=== PATIENT | female | born 1975 | race Caucasian/White ===

== ENCOUNTER 2017-01-05 14:37 | Emergency (ER) | payer MEDICAID ==
--- NOTE | 2017-01-05 14:52 | EDM.PDOC ---
ED HPI GENERAL MEDICAL PROBLEM - General Chief Complaint: Lower Extremity Injury/Pain Stated Complaint: HURT LT FOOT Time Seen by Provider: 01/05/17 14:41 Source of Information: Reports: Patient History Limitations: Reports: No Limitations - History of Present Illness INITIAL COMMENTS - FREE TEXT/NARRATIVE: History of present illness: []Last night patient fell asleep with her foot underneath her thigh and when she got up she realized her foot was asleep and stepped on the floor and fell. She heard a loud pop but didn't feel too much pain as her foot was still numb. She popped her foot up on a pillow and went to sleep when she awoke this morning she had severe pain and bruising and swelling in her foot. Review of systems: As per history of present illness and below otherwise all systems reviewed and negative. Past medical history: As per history of present illness and as reviewed below otherwise noncontributory. Surgical history: As per history of present illness and as reviewed below otherwise noncontributory. Social history: No reported history of drug or alcohol abuse. Family history: As per history of present illness and as reviewed below otherwise noncontributory. Physical exam: General: Well developed, well nourished in NAD HEENT: Atraumatic, normocephalic, pupils reactive, negative for conjunctival pallor or scleral icterus, mucous membranes moist, throat clear, neck supple, nontender, trachea midline. Lungs: Clear to auscultation, breath sounds equal bilaterally, chest nontender. Heart: S1S2, regular, negative for clicks, rubs, or JVD. Abdomen: Soft, nondistended, nontender. Negative for masses or hepatosplenomegaly. Negative for costovertebral tenderness. Pelvis: Stable nontender. Genitourinary: Deferred. Rectal: Deferred. Extremities: Atraumatic, negative for cords or calf pain. Neurovascular unremarkable. Neuro: Awake, alert, oriented. Cranial nerves II through XII unremarkable. Cerebellum unremarkable. Motor and sensory unremarkable throughout. Exam nonfocal. Diagnostics: []X-ray showing fracture nondisplaced the base of the fifth metatarsal Therapeutics: []Patient was placed in a boot and given crutches she refused pain meds other than ibuprofen Impression: []Left fifth metatarsal fracture Plan: []Follow-up orthopedics ice, elevate, wear your boot and use crutches do not appear weight on this foot. Definitive disposition and diagnosis as appropriate pending reevaluation and review of above. Left Feet Pain Score (Numeric/FACES): 10 - Related Data Allergies Allergy/AdvReac Type Severity Reaction Status Date / Time No Known Allergies Allergy Verified 01/05/17 15:01 Home Meds: Home Meds Gabapentin [Neurontin] 200 mg PO TID 01/05/17 [History] Review of Systems - Review of Systems Review Of Systems: See Below (See history of present illness) ED EXAM, GENERAL - Physical Exam Exam: See Below (See history of present illness) Course - Vital Signs Last Recorded V/S: Last Vital Signs Temp 36.5 C 01/05/17 14:50 Pulse 85 01/05/17 14:50 Resp 16 01/05/17 14:50 BP 128/65 01/05/17 14:50 Pulse Ox 98 01/05/17 14:50 - Orders/Labs/Meds Orders: Active Orders 24 hr Category Date Time Status Foot 2V Lt [CR] Stat Exams 01/05/17 14:58 Taken DME for Discharge [COMM] Stat Oth 01/05/17 15:36 Ordered Meds: Medications Discontinued Medications Generic Name Dose Route Start Last Admin Trade Name Freq PRN Reason Stop Dose Admin Ibuprofen 600 mg 01/05/17 15:00 01/05/17 15:06 Motrin PO 01/05/17 15:01 Not Given ONETIME ONE Ibuprofen 800 mg 01/05/17 15:05 01/05/17 15:09 Motrin PO 01/05/17 15:06 800 mg ONETIME ONE Administration Departure - Departure Time of Disposition: 15:38 Disposition: Home, Self-Care 01 Condition: Good Clinical Impression: Fracture of fifth metatarsal bone of left foot Qualifiers: Encounter type: initial encounter Fracture type: closed Fracture alignment: nondisplaced Qualified Code(s): S92.355A - Nondisplaced fracture of fifth metatarsal bone, left foot, initial encounter for closed fracture - Discharge Information Referrals: PCP,None [Primary Care Provider] - Forms: ED Department Discharge Additional Instructions: The following information is given to patients seen in the emergency department who are being discharged to home. This information is to outline your options for follow-up care. We provide all patients seen in our emergency department with a follow-up referral. The need for follow-up, as well as the timing and circumstances, are variable depending upon the specifics of your emergency department visit. If you don't have a primary care physician on staff, we will provide you with a referral. We always advise you to contact your personal physician following an emergency department visit to inform them of the circumstance of the visit and for follow-up with them and/or the need for any referrals to a consulting specialist. The emergency department will also refer you to a specialist when appropriate. This referral assures that you have the opportunity for follow-up care with a specialist. All of these measure are taken in an effort to provide you with optimal care, which includes your follow-up. Under all circumstances we always encourage you to contact your private physician who remains a resource for coordinating your care. When calling for follow-up care, please make the office aware that this follow-up is from your recent emergency room visit. If for any reason you are refused follow-up, please contact the [facility] Emergency Department at and asked to speak to the emergency department charge nurse. Ice, elevate, do not bear weight on this foot, use her crutches and wear splint given. Return to ER if symptoms worsen follow up with orthopedic next available appointment. [facility] [address], [address] [place] [address] - My Orders Last 24 Hours: My Active Orders 01/05/17 14:58 Foot 2V Lt [CR] Stat 01/05/17 15:36 DME for Discharge [COMM] Stat - Assessment/Plan Last 24 Hours: My Active Orders 01/05/17 14:58 Foot 2V Lt [CR] Stat 01/05/17 15:36 DME for Discharge [COMM] Stat
[2017-01-05] MEDS ORDERED: Ibuprofen 400 MG Tab PO ONE (15:00)
[2017-01-05] MEDS ORDERED: Ibuprofen 800 MG Tab PO ONE (15:05)
--- NOTE | 2017-01-05 15:44 | CR ---
EXAMINATION: Left foot HISTORY: Pain COMPARISON: None TECHNIQUE: 2 views FINDINGS: There is a nondisplaced fracture through the proximal aspect of the fifth metatarsal. The r emaining osseous structures and joint spaces appear intact. Bone mineralization is otherwise normal. IMPRESSION: Nondisplaced proximal fifth metatarsal fracture.
== END 2017-01-05 16:02 | disposition home or self-care (01) ==
LOC: MW.ED 14:37
DX: S92.355A Nondisplaced fracture of fifth metatarsal bone, left foot, initial encounter for closed fracture (principal); W19.XXXA Unspecified fall, initial encounter
CPT/HCPCS: 73620; 99283; A9270

== ENCOUNTER 2017-02-15 17:18 | Emergency (ER) | payer MEDICAID ==
--- NOTE | 2017-02-15 17:49 | EDM.PDOCBH ---
ED HPI GENERAL MEDICAL PROBLEM - General Chief Complaint: Behavioral/Psych Stated Complaint: UNK Time Seen by Provider: 02/15/17 17:35 Source of Information: Reports: Patient History Limitations: Reports: No Limitations - History of Present Illness INITIAL COMMENTS - FREE TEXT/NARRATIVE: Presents stating she ran out of Suboxone and was wondering if we could give her some until an appointment she has on Tuesday. She has been taking it for 3 years supplied by a rehabilitation clinic in [place]. She recently moved here to [place]. - Related Data Allergies Allergy/AdvReac Type Severity Reaction Status Date / Time No Known Allergies Allergy Verified 02/15/17 17:47 Home Meds: Home Meds Gabapentin [Neurontin] 200 mg PO TID 01/05/17 [History] Lidocaine [Lidoderm] 1 each TP BID PRN #10 adh..patch 01/05/17 [Rx] Past Medical History HEENT History: Reports: Other (See Below) Other HEENT History: hearing problem Cardiovascular History: Reports: None Respiratory History: Reports: None Gastrointestinal History: Reports: None Genitourinary History: Reports: None RN GASTROENTEROLOGY History: Reports: None Neurological History: Reports: Other (See Below) Other Neuro History: nerve damage Psychiatric History: Reports: None - Past Surgical History HEENT Surgical History: Reports: Other (See Below) Other HEENT Surgeries/Procedures: ear surgery? Cardiovascular Surgical History: Reports: None GI Surgical History: Reports: None Social & Family History - Tobacco Use Smoking Status *Q: Current Every Day Smoker Years of Tobacco use: 20 Packs/Tins Daily: 1 ED ROS GENERAL - Review of Systems Review Of Systems: ROS reveals no pertinent complaints other than HPI. ED EXAM, BEHAVIORAL HEALTH - Physical Exam Exam: See Below Exam Limited By: No Limitations General Appearance: Alert, No Apparent Distress Ears: Normal External Exam Nose: Normal Inspection Throat/Mouth: Normal Inspection Head: Atraumatic, Normocephalic Neck: Normal Inspection Respiratory/Chest: No Respiratory Distress Cardiovascular: Normal Peripheral Pulses GI/Abdominal: Soft Extremities: Normal Inspection Neurological: Alert, Normal Mood/Affect Psychiatric: Alert, Normal Affect, Normal Cognition, Normal Mood Skin Exam: Warm, Dry, Intact, Normal color, No rash Departure - Departure Time of Disposition: 17:49 Disposition: Home, Self-Care 01 Condition: Good Clinical Impression: Medication addiction in remission - Discharge Information Referrals: PCP,None [Primary Care Provider] - Forms: ED Department Discharge Additional Instructions: 1. Suboxone is only available at specialized clinics by specially licensed physicians. Suboxone is not available here. Check the internet for availability in [place].
== END 2017-02-15 18:27 | disposition home or self-care (01) ==
LOC: MW.ED 17:18
DX: F11.21 Opioid dependence, in remission (principal); F17.210 Nicotine dependence, cigarettes, uncomplicated
CPT/HCPCS: 99282

== ENCOUNTER 2017-02-23 12:21 | Emergency (ER) | payer MEDICAID ==
--- NOTE | 2017-02-23 12:42 | EDM.PDOC ---
ED HPI GENERAL MEDICAL PROBLEM - General Chief Complaint: Genitourinary Problem Stated Complaint: POSSIBLE UTI Time Seen by Provider: 02/23/17 12:26 Source of Information: Reports: Patient History Limitations: Reports: No Limitations - History of Present Illness INITIAL COMMENTS - FREE TEXT/NARRATIVE: HISTORY AND PHYSICAL: History of present illness: Patient is a 41-year-old female who presents to the emergency room with complaints of dysuria, low back pain, pelvic pressure 3 days. She reports that she gets frequent UTIs and the symptoms are similar. Denies any vaginal discharge, bleeding or concerns of STI's. Denies any back injury or trauma. Eyes any changes in her bowel habits. Review of systems: As per history of present illness and below otherwise all systems reviewed and negative. Past medical history: As per history of present illness and as reviewed below otherwise noncontributory. Surgical history: As per history of present illness and as reviewed below otherwise noncontributory. Social history: No reported history of drug or alcohol abuse. Family history: As per history of present illness and as reviewed below otherwise noncontributory. Physical exam: Gen.: Well-developed and well-nourished 41-year-old female. Appears nontoxic and in no acute distress. Alert and oriented. HEENT: Atraumatic, normocephalic, pupils reactive, negative for conjunctival pallor or scleral icterus, mucous membranes moist, throat clear, neck supple, nontender, trachea midline. Lungs: Clear to auscultation, breath sounds equal bilaterally, chest nontender. Heart: S1S2, regular, negative for clicks, rubs, or JVD. Abdomen: Soft, nondistended, supra pubic tenderness. Negative for masses or hepatosplenomegaly. Negative for costovertebral tenderness. Pelvis: Stable nontender. Genitourinary: Deferred. Rectal: Deferred. Extremities: Atraumatic, negative for cords or calf pain. Neurovascular unremarkable. Neuro: Awake, alert, oriented. Cranial nerves II through XII unremarkable. Cerebellum unremarkable. Motor and sensory unremarkable throughout. Exam nonfocal. The urinalysis did not show any bacteria/WBCs in the specimen. Did discuss with this with the patient. Instructed her to follow-up with her primary caregiver. The phone number/information will be given to her. She states she did not have one previous that she recently moved here. Urine culture has been added. Patient is aware of plan of care denies any further questions at this time. Diagnostics: UA Therapeutics: [] Impression: Dysuria, urethritis Plan: 1. Please take your antibiotic as prescribed. Pyridium has also been prescribed for you, this will help alleviate the pain/discomfort associated with urinating. 2. Increase her oral fluid intake. Avoid taking any bubble baths or using any hot tubs for the next couple days. 3. Follow-up with your primary caregiver in the next 1-2 days. Return to the ED as needed and as discussed. Definitive disposition and diagnosis as appropriate pending reevaluation and review of above. Duration: Day(s): (3) Location: Reports: Abdomen, Back Associated Symptoms: Reports: No Other Symptoms Lower Back Pain Score (Numeric/FACES): 4 - Related Data Allergies Allergy/AdvReac Type Severity Reaction Status Date / Time No Known Allergies Allergy Verified 02/23/17 12:32 Home Meds: Home Meds Phenazopyridine [Pyridium] 100 mg PO TID 2 Days #6 tablet 02/23/17 [Rx] Past Medical History HEENT History: Reports: Other (See Below) Other HEENT History: hearing problem Cardiovascular History: Reports: None Respiratory History: Reports: None Gastrointestinal History: Reports: None Genitourinary History: Reports: None [employer]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 Cardiovascular Surgical History: Reports: None GI Surgical History: Reports: None Social & Family History - Family History Family Medical History: Noncontributory - Tobacco Use Smoking Status *Q: Current Every Day Smoker Years of Tobacco use: 10 Packs/Tins Daily: 1 Used Tobacco, but Quit: No Second Hand Smoke Exposure: Yes - Recreational Drug Use Recreational Drug Use: Yes ED ROS GENERAL - Review of Systems Review Of Systems: ROS reveals no pertinent complaints other than HPI. ED EXAM, RENAL/ - Physical Exam Exam: See Below (See dictation) Course - Vital Signs Last Recorded V/S: Last Vital Signs Temp 98.1 F 02/23/17 12:32 Pulse 59 L 02/23/17 12:32 Resp 12 02/23/17 12:32 BP 111/72 02/23/17 12:32 Pulse Ox 98 02/23/17 12:32 - Orders/Labs/Meds Orders: Active Orders 24 hr Category Date Time Status CULTURE URINE [RM] Stat Lab 02/23/17 13:00 Received Labs: Laboratory Tests 02/23/17 Range/Units 13:00 Urine Color YELLOW Urine Appearance CLEAR Urine pH 6.0 (5.0-8.0) Ur Specific [place] 1.015 (1.001-1.035) Urine Protein NEGATIVE (NEGATIVE) mg/dL Urine Glucose (UA) NEGATIVE (NEGATIVE) mg/dL Urine Ketones NEGATIVE (NEGATIVE) mg/dL Urine Occult Blood MODERATE (NEGATIVE) Urine Nitrite NEGATIVE (NEGATIVE) Urine Bilirubin NEGATIVE (NEGATIVE) Urine Urobilinogen 0.2 (<2.0) EU/dL Ur Leukocyte Esterase NEGATIVE (NEGATIVE) Urine RBC 0-1 (0-2/HPF) Urine WBC 0-1 (0-5/HPF) Ur Epithelial Cells OCCASIONAL (NONE-FEW) Urine Bacteria RARE (NEGATIVE) Departure - Departure Time of Disposition: 13:36 Disposition: Home, Self-Care 01 Clinical Impression: Dysuria, Ureteritis - Discharge Information Prescriptions: Phenazopyridine [Pyridium] 100 mg PO TID 2 Days #6 tablet Referrals: PCP,None [Primary Care Provider] - Forms: ED Department Discharge Additional Instructions: My general discharge The following information is given to patients seen in the emergency department who are being discharged to home. This information is to outline your options for follow-up care. We provide all patients seen in our emergency department with a follow-up referral. The need for follow-up, as well as the timing and circumstances, are variable depending upon the specifics of your emergency department visit. If you don't have a primary care physician on staff, we will provide you with a referral. We always advise you to contact your personal physician following an emergency department visit to inform them of the circumstance of the visit and for follow-up with them and/or the need for any referrals to a consulting specialist. The emergency department will also refer you to a specialist when appropriate. This referral assures that you have the opportunity for follow-up care with a specialist. All of these measure are taken in an effort to provide you with optimal care, which includes your follow-up. Under all circumstances we always encourage you to contact your private physician who remains a resource for coordinating your care. When calling for follow-up care, please make the office aware that this follow-up is from your recent emergency room visit. If for any reason you are refused follow-up, please contact the [facility] Emergency Department at and asked to speak to the emergency department charge nurse. [facility] [address] [place] [phone] 1. Please take your antibiotic as prescribed. Pyridium has also been prescribed for you, this will help alleviate the pain/discomfort associated with urinating. 2. Increase her oral fluid intake. Avoid taking any bubble baths or using any hot tubs for the next couple days. 3. Follow-up with your primary caregiver in the next 1-2 days. Return to the ED as needed and as discussed. - My Orders Last 24 Hours: My Active Orders 02/23/17 13:00 CULTURE URINE [RM] Stat - Assessment/Plan Last 24 Hours: My Active Orders 02/23/17 13:00 CULTURE URINE [RM] Stat
== END 2017-02-23 13:46 | disposition home or self-care (01) ==
LOC: MW.ED 12:21
DX: N34.2 Other urethritis (principal); F17.210 Nicotine dependence, cigarettes, uncomplicated
CPT/HCPCS: 81001; 87086; 99283